=== PATIENT | female | born 1990 | race Native Hawaiian/Other Pacific Islander ===

== ENCOUNTER 2022-03-24 17:37 | Emergency (ER) | payer MEDICAID ==
[2022-03-24] MEDS ORDERED: Amoxicillin/Clavulanate K 875-125 MG Tab PO ONE (18:34)
[2022-03-24] MEDS ORDERED: Lidocaine 1% 5 ML VIAL INJECT ONE (18:35)
[2022-03-24] MEDS ORDERED: Bacitracin Oint 1 GM U/D Packet TOP ONE (18:35)
== END 2022-03-24 19:13 | disposition home or self-care (01) ==
LOC: JP.ED 17:37
DX: S01.551A Open bite of lip, initial encounter (principal); S01.85XA Open bite of other part of head, initial encounter; W54.0XXA Bitten by dog, initial encounter
CPT/HCPCS: 12001; 12011; 99281; 99283-25; A9270-GY